=== PATIENT | male | born 1975 | race Caucasian/White ===

== ENCOUNTER 2017-06-21 23:07 | Emergency (ER) | payer MEDICARE, OTHER ==
[~2017-06-21] VITALS: Ht 177.8 cm; Wt 88.0 kg
[~2017-06-21 23:07] MED LIST: ADDE30TA PO; BACL10TA PO; DICL75 PO; DULO20 PO; FLUO20SO3 PO; LYRI100C PO
[2017-06-21 23:16] VITALS: BP 126/58; PULSE 90; RESP 18; O2SAT 98
[2017-06-21] MEDS ORDERED: ADDE30TA PO (23:23)
[2017-06-21] MEDS ORDERED: EFFE150C PO (23:23)
[2017-06-21] MEDS ORDERED: VALP250S18 PO (23:23)
[2017-06-21] MEDS ORDERED: TOPA100T11 PO (23:23)
[2017-06-21] MEDS ORDERED: PREG25 PO (23:23)
[2017-06-21] MEDS ORDERED: BUPR8SUB SL (23:23)
[2017-06-21 23:25] VITALS: O2SAT 100
[2017-06-21] MEDS ORDERED: DIPHTH/TETANUS/ACEL PERTUSSIS (BOOSTER) 0.5 ML VIAL/PFS IM ONE (23:30)
[2017-06-21] MEDS ORDERED: ceFAZolin 2 GM PREMIX 50 ML IV ONE (23:30)
[2017-06-21] MEDS ORDERED: SODIUM CHLOR 0.9% 1000 ML INJ 1,000 ML IV ONE (23:30)
--- NOTE | 2017-06-21 23:43 | PD ---
HPI Chief Complaint: Alcohol/Drug Intoxication Time Seen by Provider: 23:12 Travel History International Travel<30 days: No Contact w/Intl Traveler<30days: No Traveled to known affect area: No History of Present Illness HPI The patient is a 41 year old female who presents to the [facility] emergency department with a history of approximately one hour prior to arrival doing K2 for the first time. The patient reports that he has a history of bipolar disorder, depression and anxiety and multiple prior traumatic brain injuries. He reports that he became agitated and anxious. He ripped off his shirt ran down the street. The patient reports that he acquired abrasions to his hands and left elbow. The patient reports that he is on Subutex for a history of opiate use. He reports that he's been out of this medication for the last week. The patient is unsure when his tetanus was last updated. He denies having any head injury or loss of consciousness. He denies on review of systems having any recent fevers, cough, congestion, neck pain, chest pain, shortness of breath, abdominal pain, vomiting, diarrhea, urinary symptoms, or neurologic symptoms. The patient was last seen for evaluation by a psychiatrist and admitted to a hospital for 28 days in [place]. He reports that he just return back to the area. [facility] Past Medical History Narrative Medical The patient's past medical history is significant for bipolar disorder, depression and anxiety, history of a traumatic brain injury, history of chronic back pain, degenerative disc disease, history of a skull fracture. ADHD: Yes Anxiety: Yes Depression: Yes Cardiovascular Problems: No Diabetes: No Diminished Hearing: No Endocrine: No Genitourinary: No Herniated Disk: Yes Immune Disorder: No Musculoskeletal: Yes Neurologic: No Psychiatric: Yes Reproductive: No Respiratory: No Thyroid Disease: No Past Surgical History Narrative Surgical The patient's past surgical history is significant for none. Other Surgery: No Social History Alcohol Use: No Tobacco Use: No Substance Use: Yes Allergies-Medications (Allergen,Severity, Reaction): Coded Allergies: No Known Allergies (Unverified , 06/21/17) Reported Meds & Prescriptions Reported Meds & Active Scripts Active Lioresal (Baclofen) 10 Mg Tab 10 Mg PO TID [address] (Diclofenac Sod) 75 Mg Tab 75 Mg PO BID PRN 10 Days Reported Topamax (Topiramate) 100 Mg Tab 100 Mg PO HS Buprenorphine (Buprenorphine HCl) 8 Mg Subl 8 Mg SL BID Depakene Liq (Valproic Acid) 250 Mg/5 Ml Syp Unknown Dose PO DAILY Lyrica (Pregabalin) 25 Mg Cap 150 Mg PO BID Adderall (Amphetamine-Dextroamphetamine) 30 Mg Tab 30 Mg PO BID Avoid late evening doses. Space doses at least 4 to 6 hours if more than once/day dosing. Effexor XR 24 HR (Venlafaxine HCl) 150 Mg Cap 150 Mg PO DAILY Cymbalta (Duloxetine HCl) 20 Mg Cap 20 Mg PO DAILY Lyrica (Pregabalin) 100 Mg Cap 100 Mg PO TID Adderall 30 mg (Amphetamine/Dextroamphetamine) 30 Mg Tab 30 Mg PO DAILY Prozac (Fluoxetine HCl) 20 Mg/5 Ml Liqd 40 Mg PO DAILY Review of Systems Except as stated in HPI: all other systems reviewed are Neg General / Constitutional: No: Fever Eyes: No: Visual changes HENT: No: Headaches Cardiovascular: No: Chest Pain or Discomfort Respiratory: No: Shortness of Breath Gastrointestinal: No: Abdominal Pain Genitourinary: No: Dysuria Musculoskeletal: Positive: Pain Skin: Positive Rash (abrasions to his hands and left elbow) Neurologic: No: Weakness Psychiatric: Positive: Anxiety, Mood Disorder, Substance Abuse, No: Depression , Suicidal Ideations, Homicidal Ideation Endocrine: No: Polydipsia Hematologic/Lymphatic: No: Easy Bruising Physical Exam Narrative General: The patient is a well-developed well-nourished male in no acute distress. Head and Neck exam: Head is normocephalic atraumatic. Eyes: EOMI, pupils are equal round and reactive to light. Nose: Midline septum with pink mucous membranes Mouth: Dentition unremarkable. Moist mucus membranes. Posterior oropharynx is not erythematous. No tonsillar hypertrophy. Uvula midline. Airway patent. Neck: No palpable lymphadenopathy. No nuchal rigidity. No thyromegaly. Cardiovascular: Regular rate and rhythm without murmurs, gallops, or rubs. Lungs: Clear to auscultation bilaterally. No wheezes, rhonchi, or rales. Abdomen: Soft, without tenderness to palpation in all 4 quadrants of the abdomen. No guarding, rebound, or rigidity. Normal bowel sounds are audible. No tenderness on palpation of McBurney's point. Negative Guevara's sign. Extremities: No clubbing, cyanosis, or edema. 2+ pulses in all 4 extremities. No calf tenderness on palpation. The patient has no loss of range of motion. No crepitus or deformity noted. No pain with range of motion of his extremities. Back: No spinous process tenderness to palpation. No costovertebral angle tenderness to palpation. Neurologic Exam: Grossly nonfocal. Skin Exam: The patient is noted to have superficial abrasions to the left elbow posteriorly. The patient is noted to have an abrasion to the left third dorsal PIP joint, and right third dorsal PIP joint along with the fourth DIP joint on the right. Data Data Last Documented VS Vital Signs Date Time Temp Pulse Resp B/P (MAP) Pulse Ox O2 Delivery O2 Flow Rate FiO2 06/21/17 23:25 100 Room Air 06/21/17 23:25 92 18 06/21/17 23:16 126/58 (80) Orders Orders Complete Blood Count With Diff (06/21/17 23:22) Basic Metabolic Panel (Bmp) (06/21/17 23:22) Iv Access Insert/Monitor (06/21/17 23:22) Ecg Monitoring (06/21/17 23:22) Oximetry (06/21/17 23:22) Sodium Chlor 0.9% 1000 Ml Inj (Ns 1000 M (06/21/17 23:30) [id number]-[id number] (Booster) Inj (Boostrix (06/21/17 23:30) Cefazolin 2 Gm Premix (Ancef 2 Gm Premix (06/21/17 23:30) Labs Laboratory Tests Test 06/21/17 23:10 White Blood Count 8.3 TH/MM3 Red Blood Count 4.45 MIL/MM3 Hemoglobin 13.5 GM/DL Hematocrit 39.0 % Mean Corpuscular Volume 87.7 FL Mean Corpuscular Hemoglobin 30.4 PG Mean Corpuscular Hemoglobin Concent 34.6 % Red Cell Distribution Width 13.6 % Platelet Count 310 TH/MM3 Mean Platelet Volume 7.8 FL Neutrophils (%) (Auto) 66.2 % Lymphocytes (%) (Auto) 24.1 % Monocytes (%) (Auto) 6.3 % Eosinophils (%) (Auto) 3.0 % Basophils (%) (Auto) 0.4 % Neutrophils # (Auto) 5.5 TH/MM3 Lymphocytes # (Auto) 2.0 TH/MM3 Monocytes # (Auto) 0.5 TH/MM3 Eosinophils # (Auto) 0.2 TH/MM3 Basophils # (Auto) 0.0 TH/MM3 CBC Comment DIFF FINAL Differential Comment Blood Urea Nitrogen 22 MG/DL Creatinine 1.46 MG/DL Random Glucose 111 MG/DL Calcium Level 8.5 MG/DL Sodium Level 143 MEQ/L Potassium Level 3.2 MEQ/L Chloride Level 110 MEQ/L Carbon Dioxide Level 23.1 MEQ/L Anion Gap 10 MEQ/L Estimat Glomerular Filtration Rate 53 ML/MIN MDM Medical Decision Making Medical Screen Exam Complete: Yes Emergency Medical Condition: Yes Medical Record Reviewed: Yes Differential Diagnosis Acute agitation related to substance use, versus decompensated psychiatric disorder Narrative Course During the course of the patients emergency department visit, the patients history, examination, and differential diagnosis were reviewed with the patient. The patient had IV access obtained and blood work sent for analysis. The patient on arrival is calm and cooperative. I suspect that this patient's symptoms are related to the use of K2. The patient was initially provided normal saline 1 L IV fluid bolus. The patient on arrival reports that he is thirsty and was given water for by mouth hydration. The patients laboratory studies were reviewed and remarkable for a white count of 8.3, hemoglobin 13.5, platelets 310 with a normal differential, basic metabolic profile is remarkable for potassium of 3.2, chloride 110, BUN 22, creatinine 1.46, glucose 111. The patient will be given a potassium supplement orally. The patient has remained awake and alert, calm and cooperative during his emergency department observation. The patient will be discharged home. The patient is resting comfortably and feels better, is alert and in no distress. The patients results and examination findings were discussed with the patient. The repeat examination is unremarkable and benign. The history, exam, diagnostic testing, and current condition do not suggest any significant pathology to warrant further testing, continued ED treatment, admission, or surgical evaluation at this point. The vital signs have been stable. The patient does not have uncontrollable pain, intractable vomiting, or other significant symptoms. The patient's condition is stable and appropriate for discharge. The patient will pursue further outpatient evaluation with a primary care physician or other designated or consulting physician as indicated in the discharge instructions. The patient expressed understanding and was agreeable with this plan. Diagnosis Primary Impression: Substance-induced anxiety disorder Referrals: Psychiatrist 3 days Patient Instructions: General Instructions Additional Instructions: Avoid use of street drugs including K2 in the future as this can aggravate your psychiatric disorder. Med/Other Pt SpecificInfo: No Change to Meds Disposition: 01 DISCHARGE HOME Condition: Stable Khloe Nam MD Jun 21, 2017 23:42
[2017-06-21 23:49] LABS: AUTOMATED NEUTROPHIL # 5.5 TH/MM3 (1.8-7.7); BASOPHIL % 0.4 % (0.0-2.0); EOSINOPHIL # 0.2 TH/MM3 (0-0.4); HEMO FLAGS DIFF FINAL; LYMPH % 24.1 % (9.0-44.0); MEAN CELL VOLUME 87.7 FL (80.0-100.0); MEAN CORPUSCULAR HEMOGLOBIN 30.4 PG (27.0-34.0); MEAN CORPUSCULAR HGB CONC 34.6 % (32.0-36.0); MONO % 6.3 % (0.0-8.0); NEUT % 66.2 % (16.0-70.0); PLATELET COUNT 310 TH/MM3 (150-450); RED BLOOD COUNT 4.45 MIL/MM3 (4.50-5.90); RED CELL DISTRIBUTION WIDTH 13.6 % (11.6-17.2); WHITE BLOOD COUNT 8.3 TH/MM3 (4.0-11.0)
[2017-06-22 00:04] LABS: BICARBONATE 23.1 MEQ/L (21.0-32.0); POTASSIUM 3.2 MEQ/L (3.5-5.1)
[2017-06-22] MEDS ORDERED: POTASSIUM CHLORIDE 20 MEQ CONTROLLED RELEASE TAB PO ONE (00:45)
== END 2017-06-22 01:17 | disposition home or self-care (01) ==
LOC: NEPE 23:07
DX: F19.980 Other psychoactive substance use, unspecified with psychoactive substance-induced anxiety disorder (principal); Z23 Encounter for immunization
CPT/HCPCS: 80048; 85025; 90471; 90715; 96365; 99284; J0690; J7030